=== PATIENT | female | born 1990 | race Caucasian/White ===

== ENCOUNTER → 2017-11-18 | Outpatient (CLI) | payer SELFPAY ==
[~2017-11-18] MED LIST: CETI10TA10 PO; CHOL100010 PO; CYAN500T PO; FLUT0.15 NAE; SERT25TA PO; VNTHFA/IN INH
== END | disposition home or self-care (01) ==
LOC: C.LABPBG 12:13
PROVIDERS: ATTEND Neuromusculoskeletal Medicine & OMM
DX: R39.9 Unspecified symptoms and signs involving the genitourinary system (principal)